=== PATIENT | female | born 1985 | race Caucasian/White ===

== ENCOUNTER 2017-07-09 18:31 | Emergency (ER) | payer MEDICAID ==
[2017-07-09] MEDS: HYDROCODONE/APAP (5/325) TAB PO (20:06)
== END 2017-07-09 22:30 | disposition home or self-care (01) ==
LOC: FTE 18:31
DX: S80.01XA Contusion of right knee, initial encounter (principal); S40.021A Contusion of right upper arm, initial encounter; W18.39XA Other fall on same level, initial encounter; Y92.9 Unspecified place or not applicable
CPT/HCPCS: 73060; 73060-RT; 73562; 99283-25